=== PATIENT | female | born 1935 | race Caucasian/White ===

== ENCOUNTER 2019-11-13 09:45 | Inpatient (IN) ==
[2019-11-13] MEDS ORDERED: *HR* FentaNYL (PF) 100 MCG/2 ML VIAL ONE (11:01)
[2019-11-13] MEDS ORDERED: *HR* Midazolam HCl 2 MG/2 ML VIAL ONE (11:02)
[2019-11-13] MEDS ORDERED: Acetaminophen IV 1,000 MG/100 ML INFUS..BTL IVPB ONE (11:09)
[2019-11-13] MEDS ORDERED: Ondansetron 4 MG/2 ML VIAL IVP ONE ×2 (11:10→14:39)
[2019-11-13] MEDS ORDERED: *HR* HYDROmorphone PF 0.5 MG/0.5 ML SYRINGE IVP PRN ×2 (11:10→14:39)
[2019-11-13] MEDS ORDERED: *HR* OxyCODONE Immed Rel 5 MG TABLET PO PRN (11:10)
[2019-11-13] MEDS ORDERED: *HR* Promethazine 25 MG/ML VIAL IVP PRN ×2 (11:10→14:39)
[2019-11-13] MEDS ORDERED: Scopolamine Patch 1.5 MG PATCH.TD72 TD ONE (11:10)
[2019-11-13] MEDS: Ringers Solution, Lactated 1,000 ML IVC SCH (11:17)
[2019-11-13] MEDS ORDERED: 0.9 % Sodium Chloride 1,000 ML ONE (12:59)
[2019-11-13] MEDS ORDERED: Ketorolac 30 MG/ML VIAL IVP ONE (14:39)
[2019-11-13] MEDS: Budesonide/Formoterol 160/4.5 1 PUFF INH IH SCH (22:55)
[2019-11-14 06:24] LABS: INR 1.1; Prothrombin Time 12.7 Seconds (9.4-12.1)
[2019-11-14 06:37] LABS: Basophils % 0.1 %; Hematocrit 42.4 % (35.3-44.9); Platelet Count 105 K/mcL (140-400)
[2019-11-14 06:38] LABS: Alanine Aminotransferase 56 Units/L (7-52); Albumin 3.4 g/dL (3.5-5.7); Albumin/Globulin Ratio 1.3 (1.1-2.2); Alkaline Phosphatase 65 Units/L (34-104); Aspartate Amino Transferase 170 Units/L (13-39); BUN/Creatinine Ratio 19 (6-26); Bilirubin,Total 1.5 mg/dL (0.3-1.0); Blood Urea Nitrogen 17 mg/dL (8-23); Calcium 8.7 mg/dL (8.6-10.3); Carbon Dioxide 30 mEq/L (23-29); Chloride 105 mEq/L (98-107); Globulin 2.7 g/dL (2.4-3.5); Glucose 102 mg/dL (70-105); Magnesium 1.9 mg/dL (1.6-2.6); Osmolality,Calculated 292 (280-300); Phosphorous 4.1 mg/dL (2.7-4.5); Potassium 3.5 mEq/L (3.5-5.1); Sodium 140 mEq/L (136-145); Total Protein 6.1 g/dL (6.4-8.9); eGFR For African Americans > 60 (> 60); eGFR For Non-African Americans > 60 (> 60)
[2019-11-14 06:39] LABS: Hemoglobin 13.5 g/dL (11.5-15.4); Immature Granulocytes % 0.7 % (0-4); Immature Platelets 4.5 % (1.1-6.1); Lymphocytes # 0.6 K/mcL (0.6-4.6); Lymphocytes % 8.6 %; Mean Corpuscular HGB Conc 31.8 g/dL (31.6-35.5); Mean Corpuscular Hemoglobin 28.2 pg (28.0-33.3); Mean Corpuscular Volume 88.7 fL (83.0-100.0); Monocytes # 0.4 K/mcL (0.0-1.3); Neutrophils # 5.8 K/mcL (1.6-8.9); Red Blood Count 4.78 M/mcL (3.82-4.97); Red Cell Distribution Width 15.6 % (11.5-14.5); Segmented Neutrophils % 84.6 %; White Blood Count 6.9 K/mcL (4.3-11.1)
[2019-11-14] MEDS: Budesonide/Formoterol 160/4.5 1 PUFF INH IH SCH ×2 (07:59→20:10)
[2019-11-14] MEDS ORDERED: Ondansetron 4 MG/2 ML VIAL IVP PRN (09:01)
[2019-11-14] MEDS: carvediloL 6.25 MG TABLET PO SCH ×2 (09:06→18:20)
[2019-11-14] MEDS: Furosemide 40 MG TABLET PO SCH (09:06)
[2019-11-14] MEDS: Ringers Solution, Lactated 1,000 ML IVC SCH (10:17)
[2019-11-14] MEDS ORDERED: Furosemide 40 MG/4 ML VIAL IVP ONE (11:48)
[2019-11-14] MEDS ORDERED: levoFLOXacin 750 MG/150 ML 750 MG/150 ML BAG IVPB SCH (12:00)
[2019-11-15 06:06] LABS: Albumin 3.3 g/dL (3.5-5.7); Albumin/Globulin Ratio 1.3 (1.1-2.2); Bilirubin,Direct 0.5 mg/dL (0.0-0.2); Bilirubin,Indirect 1.2 mg/dL (0.0-1.0); Bilirubin,Total 1.7 mg/dL (0.3-1.0); Globulin 2.5 g/dL (2.4-3.5); Total Protein 5.8 g/dL (6.4-8.9)
[2019-11-15] MEDS: Furosemide 40 MG TABLET PO SCH (08:18)
[2019-11-15] MEDS: carvediloL 6.25 MG TABLET PO SCH ×2 (08:18→17:39)
[2019-11-15] MEDS ORDERED: Ipratropium/Albuterol Neb 3 ML IH PRN (09:30)
[2019-11-15] MEDS ORDERED: methylPREDNISolone 125 MG/2 ML VIAL IVP ONE (09:30)
[2019-11-15] MEDS ORDERED: Furosemide 20 MG/2 ML VIAL IVP ONE (09:33)
[2019-11-15 10:10] LABS: Basophils % 0.3 %; Eosinophils % 0.4 %; Red Cell Distribution Width 15.7 % (11.5-14.5)
[2019-11-15 10:12] LABS: Hematocrit 42.3 % (35.3-44.9); Hemoglobin 13.4 g/dL (11.5-15.4); Immature Granulocytes % 0.4 % (0-4); Immature Platelets 3.6 % (1.1-6.1); Lymphocytes # 0.7 K/mcL (0.6-4.6); Lymphocytes % 8.8 %; Mean Corpuscular HGB Conc 31.7 g/dL (31.6-35.5); Mean Corpuscular Hemoglobin 28.3 pg (28.0-33.3); Mean Corpuscular Volume 89.2 fL (83.0-100.0); Mean Platelet Volume 9.5 fL (9.4-12.4); Monocytes # 0.7 K/mcL (0.0-1.3); Monocytes % 9.5 %; Red Blood Count 4.74 M/mcL (3.82-4.97); Segmented Neutrophils % 80.6 %; White Blood Count 7.4 K/mcL (4.3-11.1)
[2019-11-15 10:19] LABS: Platelet Count 76 K/mcL (140-400)
[2019-11-15 10:27] LABS: BUN/Creatinine Ratio 25 (6-26); Blood Urea Nitrogen 21 mg/dL (8-23); Calcium 8.7 mg/dL (8.6-10.3); Carbon Dioxide 32 mEq/L (23-29); Chloride 102 mEq/L (98-107); Glucose 113 mg/dL (70-105); Osmolality,Calculated 292 (280-300); Sodium 139 mEq/L (136-145); eGFR For African Americans > 60 (> 60); eGFR For Non-African Americans > 60 (> 60)
[2019-11-15] MEDS: *HR* OxyCODONE Immed Rel 5 MG TABLET PO PRN (10:40)
[2019-11-15] MEDS ORDERED: Potassium Chloride 40 MEQ, Lidocaine 1% 2 ML in 0.9 % Sodium Chloride 500 ML IVPB ONE (10:59)
[2019-11-15] MEDS ORDERED: Isovue-370 500 ML BOTTLE IVP ONE (11:06)
[2019-11-15] MEDS: Budesonide/Formoterol 160/4.5 1 PUFF INH IH SCH ×2 (11:24→20:43)
[2019-11-15] MEDS: Ipratropium/Albuterol Neb 3 ML IH SCH ×3 (11:24→20:43)
[2019-11-15] MEDS ORDERED: Nicotine 14 MG PATCH.TD24 TD SCH (13:00)
[2019-11-15] MEDS: Ringers Solution, Lactated 1,000 ML IVC SCH (14:29)
[2019-11-15 16:52] LABS: Troponin I 0.04 ng/mL (< 0.04)
[2019-11-15] MEDS: Piperacillin/Tazobactam 3.375 GM in 0.9 % Sodium Chloride Mini Bag 100 ML IVPB SCH ×2 (17:37→23:41)
[2019-11-15] MEDS: *HR* Heparin 5,000 UNIT/ML VIAL SQ SCH (20:14)
[2019-11-15 21:00] LABS: Potassium 4.2 mEq/L (3.5-5.1)
[2019-11-15] MEDS: Nicotine 14 MG PATCH.TD24 TD SCH (21:46)
[2019-11-15] MEDS: MethylPREDNISolone 40 MG/ML VIAL IVP SCH (23:41)
[2019-11-16] MEDS: Ipratropium/Albuterol Neb 3 ML IH SCH ×6 (00:43→20:04)
[2019-11-16 03:11] LABS: Hemoglobin 13.1 g/dL (11.5-15.4); Red Cell Distribution Width 15.6 % (11.5-14.5); Segmented Neutrophils % 83.5 %
[2019-11-16 03:13] LABS: Basophils % 0.2 %; Hematocrit 42.1 % (35.3-44.9); Immature Granulocytes % 1.1 % (0-4); Immature Platelets 5.3 % (1.1-6.1); Lymphocytes # 0.5 K/mcL (0.6-4.6); Lymphocytes % 8.2 %; Mean Corpuscular HGB Conc 31.1 g/dL (31.6-35.5); Mean Corpuscular Hemoglobin 28.1 pg (28.0-33.3); Mean Corpuscular Volume 90.1 fL (83.0-100.0); Monocytes # 0.4 K/mcL (0.0-1.3); Neutrophils # 5.1 K/mcL (1.6-8.9); Red Blood Count 4.67 M/mcL (3.82-4.97); White Blood Count 6.1 K/mcL (4.3-11.1)
[2019-11-16 03:14] LABS: Platelet Count 76 K/mcL (140-400)
[2019-11-16 03:24] LABS: BUN/Creatinine Ratio 29 (6-26); Blood Urea Nitrogen 22 mg/dL (8-23); Calcium 8.8 mg/dL (8.6-10.3); Carbon Dioxide 30 mEq/L (23-29); Chloride 105 mEq/L (98-107); Glucose 139 mg/dL (70-105); Osmolality,Calculated 298 (280-300); Potassium 3.6 mEq/L (3.5-5.1); Sodium 141 mEq/L (136-145); eGFR For African Americans > 60 (> 60); eGFR For Non-African Americans > 60 (> 60)
[2019-11-16] MEDS ORDERED: *HR* Labetalol 20 MG/4 ML SYRINGE IVP ONE (03:36)
[2019-11-16] MEDS: *HR* Heparin 5,000 UNIT/ML VIAL SQ SCH ×3 (05:16→22:23)
[2019-11-16] MEDS: MethylPREDNISolone 40 MG/ML VIAL IVP SCH ×2 (07:53→14:48)
[2019-11-16] MEDS: carvediloL 6.25 MG TABLET PO SCH ×2 (07:53→18:14)
[2019-11-16] MEDS: Piperacillin/Tazobactam 3.375 GM in 0.9 % Sodium Chloride Mini Bag 100 ML IVPB SCH ×2 (07:53→14:48)
[2019-11-16] MEDS: Furosemide 40 MG TABLET PO SCH (07:53)
[2019-11-16] MEDS: Nicotine 14 MG PATCH.TD24 TD SCH (07:54)
[2019-11-16] MEDS: Budesonide/Formoterol 160/4.5 1 PUFF INH IH SCH ×2 (08:02→20:04)
[2019-11-16] MEDS ORDERED: Furosemide 20 MG/2 ML VIAL IVP SCH (09:00)
[2019-11-16 09:42] LABS: Albumin 3.4 g/dL (3.5-5.7); Albumin/Globulin Ratio 1.3 (1.1-2.2); Bilirubin,Direct 0.4 mg/dL (0.0-0.2); Bilirubin,Indirect 0.8 mg/dL (0.0-1.0); Bilirubin,Total 1.2 mg/dL (0.3-1.0); Globulin 2.7 g/dL (2.4-3.5); Total Protein 6.1 g/dL (6.4-8.9)
[2019-11-16] MEDS: Vancomycin 1,250 MG/262.5 ML IV.SOLN IVPB SCH (11:02)
[2019-11-16] MEDS: *HR* OxyCODONE Immed Rel 5 MG TABLET PO PRN (22:22)
[2019-11-16] MEDS: Furosemide 20 MG/2 ML VIAL IVP SCH (22:26)
[2019-11-17] MEDS: Ipratropium/Albuterol Neb 3 ML IH SCH ×7 (00:04→23:26)
[2019-11-17] MEDS: Piperacillin/Tazobactam 3.375 GM in 0.9 % Sodium Chloride Mini Bag 100 ML IVPB SCH ×3 (00:31→16:06)
[2019-11-17] MEDS: MethylPREDNISolone 40 MG/ML VIAL IVP SCH ×2 (00:31→08:38)
[2019-11-17 02:01] LABS: Hemoglobin 12.7 g/dL (11.5-15.4); Red Cell Distribution Width 15.8 % (11.5-14.5)
[2019-11-17 02:03] LABS: Hematocrit 40.7 % (35.3-44.9); Immature Granulocytes % 0.9 % (0-4); Immature Platelets 6.7 % (1.1-6.1); Lymphocytes # 0.4 K/mcL (0.6-4.6); Lymphocytes % 5.9 %; Mean Corpuscular HGB Conc 31.2 g/dL (31.6-35.5); Mean Corpuscular Hemoglobin 28.2 pg (28.0-33.3); Mean Corpuscular Volume 90.2 fL (83.0-100.0); Mean Platelet Volume 11.6 fL (9.4-12.4); Monocytes # 0.5 K/mcL (0.0-1.3); Monocytes % 6.6 %; Neutrophils # 6.4 K/mcL (1.6-8.9); Red Blood Count 4.51 M/mcL (3.82-4.97); Segmented Neutrophils % 86.6 %; White Blood Count 7.4 K/mcL (4.3-11.1)
[2019-11-17 02:06] LABS: Platelet Count 89 K/mcL (140-400)
[2019-11-17 02:15] LABS: BUN/Creatinine Ratio 33 (6-26); Blood Urea Nitrogen 29 mg/dL (8-23); Calcium 8.7 mg/dL (8.6-10.3); Carbon Dioxide 31 mEq/L (23-29); Chloride 105 mEq/L (98-107); Glucose 187 mg/dL (70-105); Osmolality,Calculated 303 (280-300); Potassium 3.4 mEq/L (3.5-5.1); Sodium 141 mEq/L (136-145); eGFR For African Americans > 60 (> 60); eGFR For Non-African Americans > 60 (> 60)
[2019-11-17] MEDS: *HR* Heparin 5,000 UNIT/ML VIAL SQ SCH ×3 (05:15→20:35)
[2019-11-17] MEDS: Budesonide/Formoterol 160/4.5 1 PUFF INH IH SCH ×2 (07:34→19:51)
[2019-11-17] MEDS: carvediloL 6.25 MG TABLET PO SCH ×2 (08:37→16:07)
[2019-11-17] MEDS: Furosemide 20 MG/2 ML VIAL IVP SCH ×2 (08:38→20:34)
[2019-11-17] MEDS: Nicotine 14 MG PATCH.TD24 TD SCH (09:14)
[2019-11-17] MEDS: Vancomycin 1,250 MG/262.5 ML IV.SOLN IVPB SCH (12:18)
[2019-11-17] MEDS: *HR* OxyCODONE Immed Rel 5 MG TABLET PO PRN (21:45)
[2019-11-18] MEDS: Piperacillin/Tazobactam 3.375 GM in 0.9 % Sodium Chloride Mini Bag 100 ML IVPB SCH ×3 (00:16→16:34)
[2019-11-18] MEDS: Ipratropium/Albuterol Neb 3 ML IH SCH ×5 (03:55→20:10)
[2019-11-18] MEDS: *HR* Heparin 5,000 UNIT/ML VIAL SQ SCH ×3 (05:41→20:16)
[2019-11-18] MEDS: Budesonide/Formoterol 160/4.5 1 PUFF INH IH SCH ×2 (07:49→20:10)
[2019-11-18 08:31] LABS: Hemoglobin 13.6 g/dL (11.5-15.4); Immature Granulocytes % 0.6 % (0-4); Mean Corpuscular HGB Conc 31.9 g/dL (31.6-35.5); Mean Platelet Volume 10.5 fL (9.4-12.4)
[2019-11-18 08:33] LABS: Hematocrit 42.6 % (35.3-44.9); Immature Platelets 4.5 % (1.1-6.1); Lymphocytes # 0.5 K/mcL (0.6-4.6); Lymphocytes % 10.4 %; Mean Corpuscular Hemoglobin 28.3 pg (28.0-33.3); Mean Corpuscular Volume 88.6 fL (83.0-100.0); Monocytes # 0.5 K/mcL (0.0-1.3); Monocytes % 10.4 %; Neutrophils # 4.1 K/mcL (1.6-8.9); Red Blood Count 4.81 M/mcL (3.82-4.97); Red Cell Distribution Width 15.9 % (11.5-14.5); Segmented Neutrophils % 78.6 %; White Blood Count 5.2 K/mcL (4.3-11.1)
[2019-11-18 08:34] LABS: Platelet Count 81 K/mcL (140-400)
[2019-11-18 08:47] LABS: BUN/Creatinine Ratio 38 (6-26); Blood Urea Nitrogen 26 mg/dL (8-23); Calcium 8.7 mg/dL (8.6-10.3); Carbon Dioxide 32 mEq/L (23-29); Chloride 106 mEq/L (98-107); Glucose 79 mg/dL (70-105); Osmolality,Calculated 300 (280-300); Sodium 143 mEq/L (136-145); eGFR For African Americans > 60 (> 60); eGFR For Non-African Americans > 60 (> 60)
[2019-11-18] MEDS ORDERED: Potassium Chloride 20 MEQ, Lidocaine 1% 2 ML in 0.9 % Sodium Chloride 250 ML IVPB ONE (09:09)
[2019-11-18] MEDS ORDERED: Aminoglycoside Consult 1 EACH MC ONE (09:23)
[2019-11-18 09:49] LABS: Lactate Dehydrogenase 196 Units/L (140-271); Vancomycin,Trough 9 mcg/mL (5-10)
[2019-11-18] MEDS: Nicotine 14 MG PATCH.TD24 TD SCH (09:50)
[2019-11-18] MEDS: carvediloL 6.25 MG TABLET PO SCH ×2 (09:50→16:35)
[2019-11-18] MEDS: predniSONE 20 MG TABLET PO SCH (09:50)
[2019-11-18] MEDS: Furosemide 20 MG/2 ML VIAL IVP SCH ×2 (09:50→20:16)
[2019-11-18 10:07] LABS: ABG Base Excess 7 mEq/L (-2 to 3); ABG HCO3 31 mEq/L (21-27); ABG Oxygen Saturation 97 % (95-98); ABG PCO2 41 mmHg (35-45); ABG PH 7.49 pH Units (7.32-7.45); ABG PO2 79 mmHg (85-104); ABG TCO2 32 mEq/L (20-26)
[2019-11-18] MEDS ORDERED: Vancomycin 1,500 MG/265 ML IV.SOLN IVPB SCH (11:00)
[2019-11-18] MEDS ORDERED: lisinopriL 10 MG TABLET PO SCH (13:15)
[2019-11-18 14:59] LABS: RBC,Pleural Fluid 2000 RBC/mcL
[2019-11-18 15:56] LABS: Amylase,Pleural Fluid 11 Units/L (No Ref Range); Glucose,Pleural Fluid 70 mg/dL (No Ref Range); LDH,Pleural Fluid 300 Units/L (No Ref Range); Total Protein,Pleural Fluid < 3.0 g/dL
[2019-11-18 16:26] LABS: Basophils,Pleural Fluid 0 %; Eosinophils,Pleural Fluid 0 %
[2019-11-18 16:51] LABS: Appearance of Pleural Fl Hazy (Clear)
[2019-11-18] MEDS: *HR* OxyCODONE Immed Rel 5 MG TABLET PO PRN (22:21)
[2019-11-19] MEDS: Ipratropium/Albuterol Neb 3 ML IH SCH ×6 (00:10→20:06)
[2019-11-19 01:32] LABS: Hemoglobin 13.2 g/dL (11.5-15.4); Red Cell Distribution Width 15.8 % (11.5-14.5)
[2019-11-19 01:34] LABS: Basophils % 0.2 %; Hematocrit 40.6 % (35.3-44.9); Immature Granulocytes % 0.8 % (0-4); Immature Platelets 3.7 % (1.1-6.1); Lymphocytes # 0.5 K/mcL (0.6-4.6); Lymphocytes % 10.6 %; Mean Corpuscular HGB Conc 32.5 g/dL (31.6-35.5); Mean Corpuscular Hemoglobin 28.6 pg (28.0-33.3); Mean Corpuscular Volume 88.1 fL (83.0-100.0); Mean Platelet Volume 10.9 fL (9.4-12.4); Monocytes # 0.4 K/mcL (0.0-1.3); Monocytes % 9.1 %; Neutrophils # 3.8 K/mcL (1.6-8.9); Red Blood Count 4.61 M/mcL (3.82-4.97); Segmented Neutrophils % 79.3 %; White Blood Count 4.8 K/mcL (4.3-11.1)
[2019-11-19 01:36] LABS: Platelet Count 95 K/mcL (140-400)
[2019-11-19 01:45] LABS: Magnesium 1.7 mg/dL (1.6-2.6)
[2019-11-19 01:46] LABS: Alanine Aminotransferase 86 Units/L (7-52); Albumin/Globulin Ratio 1.2 (1.1-2.2); Alkaline Phosphatase 99 Units/L (34-104); Aspartate Amino Transferase 85 Units/L (13-39); BUN/Creatinine Ratio 36 (6-26); Bilirubin,Total 1.3 mg/dL (0.3-1.0); Blood Urea Nitrogen 26 mg/dL (8-23); Calcium 8.7 mg/dL (8.6-10.3); Carbon Dioxide 31 mEq/L (23-29); Chloride 104 mEq/L (98-107); Globulin 2.6 g/dL (2.4-3.5); Glucose 73 mg/dL (70-105); Osmolality,Calculated 295 (280-300); Sodium 141 mEq/L (136-145); Total Protein 5.6 g/dL (6.4-8.9); eGFR For African Americans > 60 (> 60); eGFR For Non-African Americans > 60 (> 60)
[2019-11-19] MEDS: *HR* Heparin 5,000 UNIT/ML VIAL SQ SCH ×3 (06:06→20:29)
[2019-11-19] MEDS: *HR* OxyCODONE Immed Rel 5 MG TABLET PO PRN ×3 (06:10→23:36)
[2019-11-19] MEDS: Budesonide/Formoterol 160/4.5 1 PUFF INH IH SCH ×2 (08:02→20:06)
[2019-11-19] MEDS: carvediloL 6.25 MG TABLET PO SCH ×2 (09:18→16:04)
[2019-11-19] MEDS: Nicotine 14 MG PATCH.TD24 TD SCH (09:18)
[2019-11-19] MEDS: predniSONE 20 MG TABLET PO SCH (09:18)
[2019-11-19] MEDS: Furosemide 20 MG/2 ML VIAL IVP SCH ×2 (09:19→16:04)
[2019-11-19] MEDS ORDERED: Potassium Phosphate 44 MEQ in 0.9 % Sodium Chloride 250 ML IVPB ONE (14:58)
[2019-11-20] MEDS: Ipratropium/Albuterol Neb 3 ML IH SCH ×4 (00:03→11:23)
[2019-11-20] MEDS: *HR* Heparin 5,000 UNIT/ML VIAL SQ SCH (05:56)
[2019-11-20 06:37] VITALS: BP 143/70
[2019-11-20] MEDS: Budesonide/Formoterol 160/4.5 1 PUFF INH IH SCH (07:37)
[2019-11-20] MEDS: predniSONE 20 MG TABLET PO SCH (08:06)
[2019-11-20] MEDS: carvediloL 6.25 MG TABLET PO SCH (08:06)
[2019-11-20] MEDS: Furosemide 20 MG/2 ML VIAL IVP SCH (08:07)
[2019-11-20] MEDS: Nicotine 14 MG PATCH.TD24 TD SCH (08:07)
[2019-11-20] MEDS: *HR* OxyCODONE Immed Rel 5 MG TABLET PO PRN (08:21)
== END 2019-11-20 14:40 | disposition home health service (06) | DRG 405 ==
LOC: RAD 09:45 → 3BNU 09:45 → EDSTATUS 11:15 → SUATTDRO 18:37 → 2ANU 11-18 14:58
PROVIDERS: ADMIT Internal Medicine; ATTEND Internal Medicine
PROC: [UNRECOGNIZED PROCEDURE] (2019-11-13 11:15)

== ENCOUNTER 2021-04-26 17:38 | Inpatient (IN) ==
[2021-04-26] MEDS ORDERED: Ipratropium/Albuterol Neb 3 ML IH ONE ×2 (17:55→20:01)
[2021-04-26] MEDS ORDERED: methylPREDNISolone 125 MG/2 ML VIAL IVP ONE (18:15)
[2021-04-26 18:31] LABS: Hemoglobin 13.4 g/dL (11.5-15.4); Mean Corpuscular Volume 93.3 fL (83.0-100.0); Monocytes % 9.3 %
[2021-04-26 18:31] LABS: VBG HCO3 28 mEq/L (21-27); VBG PCO2 46 mmHg (41-51); VBG PH 7.39 pH Units (7.32-7.42); VBG PO2 192 mmHg (25-50)
[2021-04-26 18:33] LABS: Basophils % 0.3 %; Eosinophils # 0.1 K/mcL (0.0-0.6); Eosinophils % 0.7 %; Hematocrit 41.5 % (35.3-44.9); Immature Granulocytes % 0.7 % (0-4); Immature Platelets 3.3 % (1.1-6.1); Lymphocytes # 0.9 K/mcL (0.6-4.6); Lymphocytes % 9.3 %; Mean Corpuscular HGB Conc 32.3 g/dL (31.6-35.5); Mean Corpuscular Hemoglobin 30.1 pg (28.0-33.3); Mean Platelet Volume 9.9 fL (9.4-12.4); Monocytes # 0.9 K/mcL (0.0-1.3); Neutrophils # 7.7 K/mcL (1.6-8.9); Platelet Count 126 K/mcL (140-400); Red Blood Count 4.45 M/mcL (3.82-4.97); Red Cell Distribution Width 14.3 % (11.5-14.5); Segmented Neutrophils % 79.7 %; White Blood Count 9.7 K/mcL (4.3-11.1)
[2021-04-26 18:40] LABS: INR 1.2; Prothrombin Time 13.1 Seconds (9.4-12.1)
[2021-04-26 18:43] LABS: Activated Partial Thrombo Time 32.3 Seconds (26.0-36.0)
[2021-04-26 18:55] LABS: Influenza A PCR Negative (Negative); Influenza B PCR Negative (Negative); Resp. Syncytial Virus PCR Negative (Negative)
[2021-04-26 18:56] LABS: SARS-CoV-2 by PCR (In House) Negative (Negative)
[2021-04-26 19:05] LABS: Reactive Lymphocytes Present (Not Present)
[2021-04-26 19:15] LABS: Troponin I 0.04 ng/mL (< 0.04)
[2021-04-26 19:18] LABS: Alanine Aminotransferase 14 Units/L (7-52); Alkaline Phosphatase 65 Units/L (34-104); Aspartate Amino Transferase 26 Units/L (13-39); BUN/Creatinine Ratio 21 (6-26); Bilirubin,Total 1.5 mg/dL (0.3-1.0); Blood Urea Nitrogen 22 mg/dL (8-23); Calcium 8.9 mg/dL (8.6-10.3); Carbon Dioxide 25 mEq/L (23-29); Chloride 103 mEq/L (98-107); Globulin 3.1 g/dL (2.4-3.5); Glucose 103 mg/dL (70-105); Lipase 15 Units/L (11-82); Osmolality,Calculated 288 (280-300); Potassium 4.3 mEq/L (3.5-5.1); Sodium 137 mEq/L (136-145); Total Protein 6.1 g/dL (6.4-8.9); eGFR For African Americans > 60 (> 60); eGFR For Non-African Americans 50 (> 60)
[2021-04-26] MEDS ORDERED: Isovue-370 500 ML BOTTLE IVP ONE (20:10)
[2021-04-26] MEDS ORDERED: cefTRIAXone 1,000 MG in 0.9 % Sodium Chloride Mini Bag 100 ML IVPB ONE (22:02)
[2021-04-26] MEDS ORDERED: *HR* Heparin 5,000 UNIT/ML VIAL IVP ONE (22:26)
[2021-04-26] MEDS ORDERED: Azithromycin 500 MG in 0.9 % Sodium Chloride 250 ML IVPB ONE (22:26)
[2021-04-26] MEDS ORDERED: *HR* Heparin 5,000 UNIT/ML VIAL IVP PRN ×2 (22:26)
[2021-04-26 22:34] LABS: Bilirubin,Urine Negative (Negative); Blood,Urine Negative (Negative); Clarity,Urine Clear (Clear); Color,Urine Light-Orange (Yellow); Glucose,Urine (UA) Normal (Normal); Ketones,Urine Negative (Negative); Leukocyte Esterase,Urine Negative (Negative); Nitrite,Urine Negative (Negative); Protein,Urine Trace mg/dL (Neg-Trace); Specific Gravity,Urine > 1.030 (1.010-1.025); Urobilinogen,Urine Normal (Normal)
[2021-04-26] MEDS: Heparin 25,000UNIT/250ML 1/2NS 25,000 UNIT/250 ML IV.SOLN IVC SCH (22:56)
[2021-04-26] MEDS ORDERED: Ondansetron 4 MG/2 ML VIAL IVP PRN (23:22)
[2021-04-26] MEDS ORDERED: Acetaminophen 325 MG TABLET PO PRN (23:22)
[2021-04-26] MEDS ORDERED: Naloxone 0.4 MG/ML INJ IVP PRN (23:22)
[2021-04-26] MEDS ORDERED: Perflutren Lipid Microsphere 1.3 ML in 0.9 % Sodium Chloride 8.7 ML IVP PRN (23:30)
[2021-04-27] MEDS: Ipratropium/Albuterol Neb 3 ML IH PRN ×2 (00:32→12:28)
[2021-04-27 01:53] LABS: Adenovirus Not Detected (Not Detect); Bordetella Pertussis Not Detected (Not Detect); Chlamydophila pneumoniae Not Detected (Not Detect); Coronavirus 229E Not Detected (Not Detect); Coronavirus HKU1 Not Detected (Not Detect); Coronavirus NL63 Not Detected (Not Detect); Coronavirus OC43 Not Detected (Not Detect); Human Metapneumovirus Not Detected (Not Detect); Human Rhinovirus/Enterovirus Not Detected (Not Detect); Influenza A Subtype 2009 H1 Not Detected (Not Detect); Influenza B Not Detected (Not Detect); Mycoplasma pneumoniae Not Detected (Not Detect); Parainfluenza Virus 1 Not Detected (Not Detect); Parainfluenza Virus 2 Not Detected (Not Detect); Parainfluenza Virus 3 Not Detected (Not Detect); Parainfluenza Virus 4 Not Detected (Not Detect); Respiratory Syncytial Virus Not Detected (Not Detect); SARS-CoV-2 Not Detected (Not Detect)
[2021-04-27 05:25] LABS: BUN/Creatinine Ratio 24 (6-26); Blood Urea Nitrogen 25 mg/dL (8-23); Calcium 8.6 mg/dL (8.6-10.3); Carbon Dioxide 25 mEq/L (23-29); Chloride 105 mEq/L (98-107); Glucose 226 mg/dL (70-105); Osmolality,Calculated 299 (280-300); Potassium 3.9 mEq/L (3.5-5.1); Sodium 139 mEq/L (136-145); eGFR For African Americans > 60 (> 60); eGFR For Non-African Americans 50 (> 60)
[2021-04-27 05:38] LABS: Thyroid Stimulating Hormone 0.579 mcIU/mL (0.340-5.600)
[2021-04-27] MEDS: Nicotine 14 MG PATCH.TD24 TD SCH ×2 (05:55→07:49)
[2021-04-27] MEDS: Azithromycin 500 MG in 0.9 % Sodium Chloride 250 ML IVPB SCH (07:43)
[2021-04-27] MEDS: cefTRIAXone 1,000 MG in 0.9 % Sodium Chloride Mini Bag 100 ML IVPB SCH (07:43)
[2021-04-27 12:28] LABS: ABG Base Excess 0 mEq/L (-2 to 3); ABG HCO3 27 mEq/L (21-27); ABG Oxygen Saturation 92 % (95-98); ABG PCO2 54 mmHg (35-45); ABG PH 7.32 pH Units (7.32-7.45); ABG PO2 69 mmHg (85-104); ABG TCO2 29 mEq/L (20-26)
[2021-04-27] MEDS: 0.9 % Sodium Chloride 1,000 ML IVC SCH (14:35)
[2021-04-27] MEDS: Heparin 25,000UNIT/250ML 1/2NS 25,000 UNIT/250 ML IV.SOLN IVC SCH (20:24)
[2021-04-28 01:39] LABS: Basophils % 0.3 %; Eosinophils # 0.1 K/mcL (0.0-0.6); Eosinophils % 0.7 %; Hematocrit 41.2 % (35.3-44.9); Hemoglobin 12.7 g/dL (11.5-15.4); Lymphocytes # 0.7 K/mcL (0.6-4.6); Lymphocytes % 9.7 %; Mean Corpuscular HGB Conc 30.8 g/dL (31.6-35.5); Mean Corpuscular Hemoglobin 29.1 pg (28.0-33.3); Mean Corpuscular Volume 94.5 fL (83.0-100.0); Mean Platelet Volume 10.1 fL (9.4-12.4); Monocytes # 0.7 K/mcL (0.0-1.3); Monocytes % 10.4 %; Neutrophils # 5.5 K/mcL (1.6-8.9); Platelet Count 117 K/mcL (140-400); Red Blood Count 4.36 M/mcL (3.82-4.97); Red Cell Distribution Width 14.2 % (11.5-14.5); Segmented Neutrophils % 77.9 %; White Blood Count 7.1 K/mcL (4.3-11.1)
[2021-04-28 01:45] LABS: BUN/Creatinine Ratio 30 (6-26); Blood Urea Nitrogen 31 mg/dL (8-23); Calcium 8.6 mg/dL (8.6-10.3); Carbon Dioxide 26 mEq/L (23-29); Chloride 109 mEq/L (98-107); Glucose 107 mg/dL (70-105); Osmolality,Calculated 299 (280-300); Potassium 3.8 mEq/L (3.5-5.1); Sodium 141 mEq/L (136-145); eGFR For African Americans > 60 (> 60); eGFR For Non-African Americans 50 (> 60)
[2021-04-28] MEDS: Heparin 25,000UNIT/250ML 1/2NS 25,000 UNIT/250 ML IV.SOLN IVC SCH (06:10)
[2021-04-28] MEDS: Nicotine 14 MG PATCH.TD24 TD SCH (08:44)
[2021-04-28] MEDS: cefTRIAXone 1,000 MG in 0.9 % Sodium Chloride Mini Bag 100 ML IVPB SCH (08:45)
[2021-04-28] MEDS: Azithromycin 500 MG in 0.9 % Sodium Chloride 250 ML IVPB SCH (08:46)
[2021-04-28] MEDS: 0.9 % Sodium Chloride 1,000 ML IVC SCH (08:47)
[2021-04-28] MEDS: Furosemide 20 MG TABLET PO SCH (09:14)
[2021-04-28] MEDS: carvediloL 6.25 MG TABLET PO SCH ×2 (09:15→17:01)
[2021-04-28] MEDS: Apixaban 5 MG TABLET PO SCH ×2 (11:01→20:27)
[2021-04-28] MEDS: Ipratropium/Albuterol Neb 3 ML IH SCH ×5 (11:15→23:55)
[2021-04-28] MEDS: Budesonide/Formoterol 160/4.5 1 PUFF INH IH SCH (11:17)
[2021-04-28] MEDS: methylPREDNISolone 125 MG/2 ML VIAL IVP SCH ×3 (12:31→23:28)
[2021-04-28] MEDS: Mirtazapine 15 MG TABLET PO SCH (20:27)
[2021-04-28] MEDS ORDERED: Benzonatate 100 MG CAPSULE PO PRN (21:33)
[2021-04-29 00:52] LABS: Basophils % 0.2 %; Hematocrit 39.3 % (35.3-44.9); Hemoglobin 11.9 g/dL (11.5-15.4); Immature Granulocytes % 1.3 % (0-4); Immature Platelets 3.7 % (1.1-6.1); Lymphocytes # 0.4 K/mcL (0.6-4.6); Lymphocytes % 9.3 %; Mean Corpuscular HGB Conc 30.3 g/dL (31.6-35.5); Mean Corpuscular Volume 95.9 fL (83.0-100.0); Mean Platelet Volume 10.6 fL (9.4-12.4); Monocytes # 0.2 K/mcL (0.0-1.3); Monocytes % 5.2 %; Neutrophils # 3.9 K/mcL (1.6-8.9); Platelet Count 121 K/mcL (140-400); Red Cell Distribution Width 14.4 % (11.5-14.5); White Blood Count 4.6 K/mcL (4.3-11.1)
[2021-04-29 01:05] LABS: BUN/Creatinine Ratio 30 (6-26); Blood Urea Nitrogen 31 mg/dL (8-23); Calcium 8.5 mg/dL (8.6-10.3); Carbon Dioxide 23 mEq/L (23-29); Chloride 110 mEq/L (98-107); Glucose 287 mg/dL (70-105); Osmolality,Calculated 309 (280-300); Sodium 141 mEq/L (136-145); eGFR For African Americans > 60 (> 60); eGFR For Non-African Americans 51 (> 60)
[2021-04-29] MEDS: Ipratropium/Albuterol Neb 3 ML IH SCH ×6 (04:35→23:41)
[2021-04-29] MEDS: methylPREDNISolone 125 MG/2 ML VIAL IVP SCH ×3 (06:20→19:44)
[2021-04-29] MEDS: 0.9 % Sodium Chloride 1,000 ML IVC SCH (06:21)
[2021-04-29] MEDS: Furosemide 20 MG TABLET PO SCH (08:19)
[2021-04-29] MEDS: Azithromycin 500 MG in 0.9 % Sodium Chloride 250 ML IVPB SCH (08:19)
[2021-04-29] MEDS: carvediloL 6.25 MG TABLET PO SCH ×2 (08:19→16:05)
[2021-04-29] MEDS: Nicotine 14 MG PATCH.TD24 TD SCH (08:19)
[2021-04-29] MEDS: Apixaban 5 MG TABLET PO SCH ×2 (08:19→19:45)
[2021-04-29] MEDS: cefTRIAXone 1,000 MG in 0.9 % Sodium Chloride Mini Bag 100 ML IVPB SCH (10:44)
[2021-04-29] MEDS: Mirtazapine 15 MG TABLET PO SCH (19:45)
[2021-04-29] MEDS: Budesonide/Formoterol 160/4.5 1 PUFF INH IH SCH (23:41)
[2021-04-30] MEDS: methylPREDNISolone 125 MG/2 ML VIAL IVP SCH ×3 (00:31→17:48)
[2021-04-30 01:38] LABS: Basophils % 0.2 %
[2021-04-30 01:40] LABS: Hemoglobin 12.3 g/dL (11.5-15.4); Immature Granulocytes % 2.7 % (0-4); Immature Platelets 3.6 % (1.1-6.1); Lymphocytes # 0.5 K/mcL (0.6-4.6); Lymphocytes % 7.2 %; Mean Corpuscular HGB Conc 31.5 g/dL (31.6-35.5); Mean Corpuscular Hemoglobin 29.4 pg (28.0-33.3); Mean Corpuscular Volume 93.1 fL (83.0-100.0); Mean Platelet Volume 10.1 fL (9.4-12.4); Monocytes # 0.3 K/mcL (0.0-1.3); Monocytes % 5.3 %; Neutrophils # 5.3 K/mcL (1.6-8.9); Platelet Count 129 K/mcL (140-400); Red Blood Count 4.19 M/mcL (3.82-4.97); Red Cell Distribution Width 14.5 % (11.5-14.5); Segmented Neutrophils % 84.6 %; White Blood Count 6.2 K/mcL (4.3-11.1)
[2021-04-30 02:03] LABS: BUN/Creatinine Ratio 33 (6-26); Blood Urea Nitrogen 32 mg/dL (8-23); Calcium 8.7 mg/dL (8.6-10.3); Carbon Dioxide 28 mEq/L (23-29); Chloride 111 mEq/L (98-107); Glucose 121 mg/dL (70-105); Osmolality,Calculated 304 (280-300); Potassium 4.7 mEq/L (3.5-5.1); Sodium 143 mEq/L (136-145); eGFR For African Americans > 60 (> 60); eGFR For Non-African Americans 55 (> 60)
[2021-04-30] MEDS: Ipratropium/Albuterol Neb 3 ML IH SCH ×5 (04:22→19:55)
[2021-04-30] MEDS: Budesonide/Formoterol 160/4.5 1 PUFF INH IH SCH ×2 (07:20→19:55)
[2021-04-30] MEDS: Nicotine 14 MG PATCH.TD24 TD SCH (09:00)
[2021-04-30] MEDS: carvediloL 6.25 MG TABLET PO SCH ×2 (09:07→17:47)
[2021-04-30] MEDS: Apixaban 5 MG TABLET PO SCH ×2 (09:07→19:29)
[2021-04-30] MEDS: Furosemide 20 MG TABLET PO SCH (09:08)
[2021-04-30] MEDS: cefTRIAXone 1,000 MG in 0.9 % Sodium Chloride Mini Bag 100 ML IVPB SCH (09:11)
[2021-04-30] MEDS: Azithromycin 500 MG in 0.9 % Sodium Chloride 250 ML IVPB SCH (11:14)
[2021-04-30] MEDS: amLODIPine 5 MG TABLET PO SCH (11:16)
[2021-04-30] MEDS: Mirtazapine 15 MG TABLET PO SCH (19:29)
[2021-05-01] MEDS: Ipratropium/Albuterol Neb 3 ML IH SCH ×7 (03:48→23:16)
[2021-05-01 05:25] LABS: Monocytes % 6.6 %; Red Cell Distribution Width 14.5 % (11.5-14.5)
[2021-05-01 05:27] LABS: Basophils % 0.3 %; Hematocrit 38.3 % (35.3-44.9); Hemoglobin 12.3 g/dL (11.5-15.4); Immature Granulocytes % 2.1 % (0-4); Immature Platelets 3.1 % (1.1-6.1); Lymphocytes # 0.5 K/mcL (0.6-4.6); Lymphocytes % 7.4 %; Mean Corpuscular HGB Conc 32.1 g/dL (31.6-35.5); Mean Corpuscular Volume 93.4 fL (83.0-100.0); Mean Platelet Volume 10.3 fL (9.4-12.4); Monocytes # 0.4 K/mcL (0.0-1.3); Neutrophils # 5.2 K/mcL (1.6-8.9); Platelet Count 134 K/mcL (140-400); Segmented Neutrophils % 83.6 %; White Blood Count 6.2 K/mcL (4.3-11.1)
[2021-05-01] MEDS: methylPREDNISolone 125 MG/2 ML VIAL IVP SCH ×2 (05:30→16:55)
[2021-05-01 05:39] LABS: BUN/Creatinine Ratio 40 (6-26); Blood Urea Nitrogen 41 mg/dL (8-23); Carbon Dioxide 28 mEq/L (23-29); Chloride 110 mEq/L (98-107); Glucose 112 mg/dL (70-105); Osmolality,Calculated 307 (280-300); Potassium 4.2 mEq/L (3.5-5.1); Sodium 143 mEq/L (136-145); eGFR For African Americans > 60 (> 60); eGFR For Non-African Americans 52 (> 60)
[2021-05-01 06:16] LABS: Platelet Estimate Slight Decrease (Normal)
[2021-05-01] MEDS: Budesonide/Formoterol 160/4.5 1 PUFF INH IH SCH ×2 (07:25→19:54)
[2021-05-01] MEDS: cefTRIAXone 1,000 MG in 0.9 % Sodium Chloride Mini Bag 100 ML IVPB SCH (07:56)
[2021-05-01] MEDS: Nicotine 14 MG PATCH.TD24 TD SCH (07:57)
[2021-05-01] MEDS: carvediloL 6.25 MG TABLET PO SCH ×2 (07:57→16:54)
[2021-05-01] MEDS: Furosemide 20 MG TABLET PO SCH (07:58)
[2021-05-01] MEDS: Apixaban 5 MG TABLET PO SCH ×2 (07:58→19:38)
[2021-05-01] MEDS: amLODIPine 5 MG TABLET PO SCH (07:58)
[2021-05-01] MEDS: Mirtazapine 15 MG TABLET PO SCH (19:38)
[2021-05-01 22:29] VITALS: PULSE 60
[2021-05-01] MEDS ORDERED: Saline Nasal Spray 44 ML BOTTLE NS PRN (23:23)
[2021-05-02] MEDS: Ipratropium/Albuterol Neb 3 ML IH SCH ×4 (03:39→15:00)
[2021-05-02] MEDS: methylPREDNISolone 125 MG/2 ML VIAL IVP SCH (04:57)
[2021-05-02 05:10] LABS: Hemoglobin 12.6 g/dL (11.5-15.4)
[2021-05-02 05:12] LABS: Hematocrit 40.3 % (35.3-44.9); Immature Platelets 2.9 % (1.1-6.1); Mean Corpuscular HGB Conc 31.3 g/dL (31.6-35.5); Mean Corpuscular Hemoglobin 29.2 pg (28.0-33.3); Mean Corpuscular Volume 93.3 fL (83.0-100.0); Mean Platelet Volume 9.9 fL (9.4-12.4); Platelet Count 128 K/mcL (140-400); Red Blood Count 4.32 M/mcL (3.82-4.97); Red Cell Distribution Width 14.3 % (11.5-14.5); White Blood Count 6.3 K/mcL (4.3-11.1)
[2021-05-02 05:33] LABS: Lymphocytes # 0.6 K/mcL (0.6-4.6); Monocytes # 0.1 K/mcL (0.0-1.3); Neutrophils # 5.3 K/mcL (1.6-8.9); Platelet Estimate Slight Decrease (Normal); Toxic Granulation Present (Not Present)
[2021-05-02 05:35] LABS: BUN/Creatinine Ratio 40 (6-26); Blood Urea Nitrogen 41 mg/dL (8-23); Carbon Dioxide 29 mEq/L (23-29); Chloride 108 mEq/L (98-107); Glucose 114 mg/dL (70-105); Osmolality,Calculated 305 (280-300); Potassium 4.3 mEq/L (3.5-5.1); Sodium 142 mEq/L (136-145); eGFR For African Americans > 60 (> 60); eGFR For Non-African Americans 52 (> 60)
[2021-05-02 06:54] VITALS: TEMP 97.9
[2021-05-02] MEDS: Budesonide/Formoterol 160/4.5 1 PUFF INH IH SCH (07:35)
[2021-05-02] MEDS: carvediloL 6.25 MG TABLET PO SCH (08:14)
[2021-05-02] MEDS: amLODIPine 5 MG TABLET PO SCH (08:14)
[2021-05-02] MEDS: Apixaban 5 MG TABLET PO SCH (08:14)
[2021-05-02] MEDS: Furosemide 20 MG TABLET PO SCH (08:14)
[2021-05-02] MEDS: Nicotine 14 MG PATCH.TD24 TD SCH (08:15)
[2021-05-02] MEDS: cefTRIAXone 1,000 MG in 0.9 % Sodium Chloride Mini Bag 100 ML IVPB SCH (08:15)
[2021-05-02 10:48] VITALS: BP 160/71
[2021-05-02 13:38] VITALS: O2SAT 92
== END 2021-05-02 15:45 | disposition home health service (06) | DRG 175 ==
LOC: 2NENU 17:38 → EMEROOARM 17:38 → SUATTDRO 23:22 → 2NENU 23:26
PROVIDERS: ADMIT Internal Medicine; ATTEND Internal Medicine

== ENCOUNTER 2022-01-09 18:26 | Inpatient (IN) ==
[2022-01-09 19:32] LABS: Red Cell Distribution Width 14.6 % (11.5-14.5)
[2022-01-09 19:34] LABS: Hematocrit 30.4 % (35.3-44.9); Hemoglobin 9.3 g/dL (11.5-15.4); Immature Granulocytes % 0.7 % (0-4); Immature Platelets 3.8 % (1.1-6.1); Lymphocytes # 0.4 K/mcL (0.6-4.6); Lymphocytes % 5.2 %; Mean Corpuscular HGB Conc 30.6 g/dL (31.6-35.5); Mean Corpuscular Hemoglobin 28.9 pg (28.0-33.3); Mean Corpuscular Volume 94.4 fL (83.0-100.0); Mean Platelet Volume 10.3 fL (9.4-12.4); Monocytes # 0.4 K/mcL (0.0-1.3); Monocytes % 5.8 %; Red Blood Count 3.22 M/mcL (3.82-4.97); Segmented Neutrophils % 88.3 %; White Blood Count 7.3 K/mcL (4.3-11.1)
[2022-01-09 19:38] LABS: Neutrophils # 6.5 K/mcL (1.6-8.9)
[2022-01-09 19:40] LABS: Platelet Count 102 K/mcL (140-400)
[2022-01-09 19:47] LABS: BUN/Creatinine Ratio 13 (6-26); Blood Urea Nitrogen 35 mg/dL (8-23); Calcium 8.8 mg/dL (8.6-10.3); Carbon Dioxide 29 mEq/L (23-29); Chloride 105 mEq/L (98-107); Glucose 124 mg/dL (70-105); Osmolality,Calculated 299 (280-300); Potassium 3.6 mEq/L (3.5-5.1); Sodium 140 mEq/L (136-145); eGFR For African Americans 21 (> 60); eGFR For Non-African Americans 18 (> 60)
[2022-01-09 19:48] LABS: Troponin I < 0.03 ng/mL (< 0.04)
[2022-01-09] MEDS ORDERED: Ipratropium/Albuterol Neb 3 ML IH ONE ×2 (22:29→23:44)
[2022-01-09 22:57] LABS: Alanine Aminotransferase 16 Units/L (7-52); Albumin 2.9 g/dL (3.5-5.7); Albumin/Globulin Ratio 1.2 (1.1-2.2); Alkaline Phosphatase 77 Units/L (34-104); Aspartate Amino Transferase 37 Units/L (13-39); Bilirubin,Direct 0.3 mg/dL (0.0-0.2); Bilirubin,Indirect 0.6 mg/dL (0.0-1.0); Bilirubin,Total 0.9 mg/dL (0.3-1.0); Globulin 2.5 g/dL (2.4-3.5); Total Protein 5.4 g/dL (6.4-8.9)
[2022-01-09 23:06] LABS: INR 1.6; Prothrombin Time 17.4 Seconds (9.4-12.1)
[2022-01-09] MEDS ORDERED: methylPREDNISolone 125 MG/2 ML VIAL IVP ONE (23:44)
[2022-01-10] MEDS ORDERED: Furosemide 40 MG/4 ML VIAL IVP ONE (00:26)
[2022-01-10] MEDS ORDERED: Melatonin 3 MG TABLET PO PRN (02:03)
[2022-01-10] MEDS ORDERED: Naloxone 0.4 MG/ML INJ IVP PRN (02:03)
[2022-01-10] MEDS ORDERED: Ondansetron ODT 4 MG TAB.RAPDIS SL PRN (02:03)
[2022-01-10] MEDS ORDERED: Nicotine 7 MG PATCH.TD24 TD PRN (03:33)
[2022-01-10 03:55] LABS: Hematocrit 29.5 % (35.3-44.9)
[2022-01-10 03:57] LABS: Hemoglobin 8.9 g/dL (11.5-15.4); Immature Platelets 3.8 % (1.1-6.1); Mean Corpuscular HGB Conc 30.2 g/dL (31.6-35.5); Mean Corpuscular Hemoglobin 28.3 pg (28.0-33.3); Mean Corpuscular Volume 93.9 fL (83.0-100.0); Mean Platelet Volume 10.6 fL (9.4-12.4); Red Blood Count 3.14 M/mcL (3.82-4.97); Red Cell Distribution Width 14.6 % (11.5-14.5); White Blood Count 5.3 K/mcL (4.3-11.1)
[2022-01-10 04:09] LABS: Calcium 8.7 mg/dL (8.6-10.3); Potassium 3.6 mEq/L (3.5-5.1)
[2022-01-10 04:13] LABS: Magnesium 2.2 mg/dL (1.6-2.6); Phosphorous 3.3 mg/dL (2.7-4.5)
[2022-01-10] MEDS: Ipratropium/Albuterol Neb 3 ML IH SCH ×6 (04:27→23:20)
[2022-01-10 04:59] LABS: Prolactin 15.15 ng/mL (3.80-23.20)
[2022-01-10] MEDS ORDERED: Perflutren Lipid Microsphere 1.3 ML in 0.9 % Sodium Chloride 8.7 ML IVP PRN (05:04)
[2022-01-10 06:53] LABS: % Iron Saturation 6 % (15-50); Iron 20 mcg/dL (50-170); Transferrin 243 mg/dL (203-362)
[2022-01-10 07:08] LABS: Folate 3.8 ng/mL (3.0-16.0)
[2022-01-10] MEDS: Budesonide/Formoterol 160/4.5 1 PUFF INH IH SCH ×2 (07:36→19:59)
[2022-01-10] MEDS: Azithromycin 250 MG TABLET PO SCH (08:11)
[2022-01-10] MEDS: Furosemide 20 MG/2 ML VIAL IVP SCH ×2 (08:11→20:52)
[2022-01-10] MEDS: Nicotine 7 MG PATCH.TD24 TD PRN (08:12)
[2022-01-10] MEDS ORDERED: predniSONE 10 MG TABLET PO SCH (09:00)
[2022-01-10] MEDS ORDERED: predniSONE 20 MG TABLET PO ONE (10:16)
[2022-01-10] MEDS: carvediloL 6.25 MG TABLET PO SCH ×2 (10:54→16:45)
[2022-01-10] MEDS: Apixaban 5 MG TABLET PO SCH ×2 (10:54→20:52)
[2022-01-10 16:59] LABS: Hemoglobin 8.3 g/dL (11.5-15.4)
[2022-01-10] MEDS: Mirtazapine 15 MG TABLET PO SCH (20:52)
[2022-01-10] MEDS ORDERED: Budesonide/Formoterol 160/4.5 1 PUFF INH IH SCH (22:00)
[2022-01-11 03:29] LABS: Hematocrit 25.8 % (35.3-44.9); Immature Granulocytes % 0.6 % (0-4); Immature Platelets 4.6 % (1.1-6.1); Lymphocytes # 0.4 K/mcL (0.6-4.6); Lymphocytes % 8.1 %; Mean Corpuscular Hemoglobin 29.4 pg (28.0-33.3); Mean Corpuscular Volume 94.9 fL (83.0-100.0); Monocytes # 0.3 K/mcL (0.0-1.3); Monocytes % 7.2 %; Red Blood Count 2.72 M/mcL (3.82-4.97); Red Cell Distribution Width 14.8 % (11.5-14.5); Segmented Neutrophils % 84.1 %; White Blood Count 4.7 K/mcL (4.3-11.1)
[2022-01-11 03:40] LABS: Platelet Count 89 K/mcL (140-400)
[2022-01-11 03:46] LABS: Albumin 2.4 g/dL (3.5-5.7); Albumin/Globulin Ratio 1.2 (1.1-2.2); Bilirubin,Total 0.5 mg/dL (0.3-1.0); Calcium 8.6 mg/dL (8.6-10.3); Potassium 3.5 mEq/L (3.5-5.1); Total Protein 4.4 g/dL (6.4-8.9)
[2022-01-11] MEDS: Ipratropium/Albuterol Neb 3 ML IH SCH ×6 (03:50→23:11)
[2022-01-11] MEDS: Budesonide/Formoterol 160/4.5 1 PUFF INH IH SCH ×2 (07:35→20:24)
[2022-01-11] MEDS ORDERED: Iron Sucrose Complex 400 MG in 0.9 % Sodium Chloride 250 ML IVPB ONE (08:02)
[2022-01-11] MEDS: carvediloL 6.25 MG TABLET PO SCH ×2 (09:01→16:27)
[2022-01-11] MEDS: Azithromycin 250 MG TABLET PO SCH (09:02)
[2022-01-11] MEDS: Apixaban 5 MG TABLET PO SCH ×2 (09:02→20:33)
[2022-01-11] MEDS: predniSONE 10 MG TABLET PO SCH (09:03)
[2022-01-11 15:15] LABS: Bacteria,Urine Moderate per hpf (None-Few); Bilirubin,Urine Negative (Negative); Blood,Urine Large (Negative); Clarity,Urine Turbid (Clear); Color,Urine Light-Orange (Yellow); Glucose,Urine (UA) Normal (Normal); Hyaline Casts,Urine Many per lpf (None Seen); Ketones,Urine Negative (Negative); Leukocyte Esterase,Urine Moderate (Negative); Mucus,Urine Few per lpf (None-Few); Nitrite,Urine Negative (Negative); PH,Urine 5.5 pH Units (5.0-8.0); Protein,Urine 30 mg/dL (Neg-Trace); Renal Epithelial Cells,Urine Few per hpf (None-Few); Specific Gravity,Urine 1.018 (1.010-1.025); Squamous Epithelial Cell,Urine Few per hpf (None-Few); Transitional Epi Cells,Urine Few per hpf (None-Few); Urobilinogen,Urine Normal (Normal)
[2022-01-11 15:19] LABS: Sodium, Urine 14.6 mEq/L
[2022-01-11] MEDS: Pantoprazole 40 MG VIAL IVP SCH (17:26)
[2022-01-11] MEDS: Albumin 25% 25gram/100mL 25 GM/100 ML IV.SOLN IVPB SCH ×2 (17:27→23:34)
[2022-01-11] MEDS: Mirtazapine 15 MG TABLET PO SCH (20:33)
[2022-01-12 03:31] LABS: Hemoglobin 7.4 g/dL (11.5-15.4); Monocytes % 10.1 %; Red Cell Distribution Width 14.6 % (11.5-14.5)
[2022-01-12 03:33] LABS: Hematocrit 24.9 % (35.3-44.9); Immature Platelets 3.8 % (1.1-6.1); Lymphocytes # 0.3 K/mcL (0.6-4.6); Lymphocytes % 6.2 %; Mean Corpuscular HGB Conc 29.7 g/dL (31.6-35.5); Mean Corpuscular Hemoglobin 28.5 pg (28.0-33.3); Mean Corpuscular Volume 95.8 fL (83.0-100.0); Mean Platelet Volume 10.9 fL (9.4-12.4); Monocytes # 0.5 K/mcL (0.0-1.3); Neutrophils # 4.3 K/mcL (1.6-8.9); Segmented Neutrophils % 82.7 %; White Blood Count 5.2 K/mcL (4.3-11.1)
[2022-01-12 03:34] LABS: Platelet Count 91 K/mcL (140-400)
[2022-01-12 03:45] LABS: Albumin 3.2 g/dL (3.5-5.7); Albumin/Globulin Ratio 1.7 (1.1-2.2); Bilirubin,Total 0.5 mg/dL (0.3-1.0); Globulin 1.9 g/dL (2.4-3.5); Potassium 3.4 mEq/L (3.5-5.1); Total Protein 5.1 g/dL (6.4-8.9)
[2022-01-12] MEDS: Ipratropium/Albuterol Neb 3 ML IH SCH ×6 (04:04→23:49)
[2022-01-12] MEDS: Pantoprazole 40 MG VIAL IVP SCH ×2 (05:18→17:17)
[2022-01-12] MEDS: Budesonide/Formoterol 160/4.5 1 PUFF INH IH SCH ×2 (07:28→19:58)
[2022-01-12] MEDS: Azithromycin 250 MG TABLET PO SCH (08:18)
[2022-01-12] MEDS: Albumin 25% 25gram/100mL 25 GM/100 ML IV.SOLN IVPB SCH ×3 (08:18→23:21)
[2022-01-12] MEDS: carvediloL 6.25 MG TABLET PO SCH ×2 (08:19→17:18)
[2022-01-12] MEDS: predniSONE 10 MG TABLET PO SCH (08:19)
[2022-01-12] MEDS: Apixaban 5 MG TABLET PO SCH (08:19)
[2022-01-12] MEDS: Acetaminophen 325 MG TABLET PO PRN (09:07)
[2022-01-12] MEDS: Nicotine 7 MG PATCH.TD24 TD PRN (11:37)
[2022-01-12] MEDS: Lactulose Oral Soln 20 GM/30 ML UDC PO SCH ×2 (14:10→20:21)
[2022-01-12 14:42] LABS: Appearance of Peritoneal Fl CLEAR (Clear)
[2022-01-12 14:49] LABS: RBC,Peritoneal Fluid < 2000 RBC/mcL
[2022-01-12 15:07] LABS: Glucose,Peritoneal Fluid 104 mg/dL (No Ref Range); LDH,Peritoneal Fluid 33 Units/L (No Ref Range); Total Protein,Peritoneal Fluid < 2.0 g/dL
[2022-01-12 15:58] LABS: Basophils,Peritoneal Fluid 0 %; Eosinophils,Peritoneal Fluid 0 %
[2022-01-12] MEDS: Mirtazapine 15 MG TABLET PO SCH (20:21)
[2022-01-13 01:36] LABS: Mean Platelet Volume 10.5 fL (9.4-12.4); Red Blood Count 2.29 M/mcL (3.82-4.97)
[2022-01-13 01:38] LABS: Hematocrit 21.6 % (35.3-44.9); Hemoglobin 6.4 g/dL (11.5-15.4); Immature Granulocytes % 1.5 % (0-4); Immature Platelets 5.3 % (1.1-6.1); Lymphocytes # 0.3 K/mcL (0.6-4.6); Mean Corpuscular HGB Conc 29.6 g/dL (31.6-35.5); Mean Corpuscular Hemoglobin 27.9 pg (28.0-33.3); Mean Corpuscular Volume 94.3 fL (83.0-100.0); Monocytes # 0.5 K/mcL (0.0-1.3); Monocytes % 14.1 %; Neutrophils # 2.5 K/mcL (1.6-8.9); Red Cell Distribution Width 14.5 % (11.5-14.5); Segmented Neutrophils % 76.4 %; White Blood Count 3.3 K/mcL (4.3-11.1)
[2022-01-13 01:50] LABS: Platelet Count 88 K/mcL (140-400)
[2022-01-13 01:51] LABS: Calcium 9.2 mg/dL (8.6-10.3); Potassium 3.2 mEq/L (3.5-5.1)
[2022-01-13 01:52] LABS: INR 2.4; Prothrombin Time 26.4 Seconds (9.4-12.1)
[2022-01-13] MEDS: Ipratropium/Albuterol Neb 3 ML IH SCH ×6 (03:50→23:30)
[2022-01-13] MEDS: Pantoprazole 40 MG VIAL IVP SCH ×2 (05:17→17:11)
[2022-01-13] MEDS: Budesonide/Formoterol 160/4.5 1 PUFF INH IH SCH ×2 (07:24→20:42)
[2022-01-13] MEDS: carvediloL 6.25 MG TABLET PO SCH ×2 (07:25→17:11)
[2022-01-13] MEDS: Azithromycin 250 MG TABLET PO SCH (07:25)
[2022-01-13] MEDS: predniSONE 10 MG TABLET PO SCH (07:25)
[2022-01-13] MEDS: Lactulose Oral Soln 20 GM/30 ML UDC PO SCH ×2 (07:25→19:49)
[2022-01-13] MEDS: Apixaban 5 MG TABLET PO SCH ×2 (07:26→19:49)
[2022-01-13] MEDS ORDERED: Lidocaine -MPF 2% 5 ML VIAL ONE (09:02)
[2022-01-13] MEDS ORDERED: *HR* Propofol 200 MG/20 ML VIAL IVP ONE (09:02)
[2022-01-13] MEDS: Albumin 25% 25gram/100mL 25 GM/100 ML IV.SOLN IVPB SCH ×2 (11:14→17:11)
[2022-01-13] MEDS ORDERED: 0.9 % Sodium Chloride 250 ML ONE (11:25)
[2022-01-13 12:23] LABS: INR 1.6; Prothrombin Time 17.8 Seconds (9.4-12.1)
[2022-01-13] MEDS: Acetaminophen 325 MG TABLET PO PRN (19:46)
[2022-01-13] MEDS: Mirtazapine 15 MG TABLET PO SCH (19:49)
[2022-01-14] MEDS: Albumin 25% 25gram/100mL 25 GM/100 ML IV.SOLN IVPB SCH ×3 (00:15→17:18)
[2022-01-14 02:37] LABS: Red Cell Distribution Width 17.2 % (11.5-14.5)
[2022-01-14 02:39] LABS: Hematocrit 27.2 % (35.3-44.9); Hemoglobin 8.4 g/dL (11.5-15.4); Immature Platelets 4.9 % (1.1-6.1); Mean Corpuscular HGB Conc 30.9 g/dL (31.6-35.5); Mean Corpuscular Hemoglobin 27.7 pg (28.0-33.3); Mean Corpuscular Volume 89.8 fL (83.0-100.0); Mean Platelet Volume 10.4 fL (9.4-12.4); Nucleated Red Blood Cells 0.6 /100 WBC (0); Red Blood Count 3.03 M/mcL (3.82-4.97); White Blood Count 4.6 K/mcL (4.3-11.1)
[2022-01-14 02:57] LABS: Calcium 9.5 mg/dL (8.6-10.3); Potassium 3.3 mEq/L (3.5-5.1)
[2022-01-14 03:01] LABS: INR 1.8; Prothrombin Time 20.1 Seconds (9.4-12.1)
[2022-01-14 03:15] LABS: Platelet Count 80 K/mcL (140-400)
[2022-01-14] MEDS: Ipratropium/Albuterol Neb 3 ML IH SCH ×5 (04:01→20:48)
[2022-01-14 04:37] LABS: Eosinophils # 0.1 K/mcL (0.0-0.6); Lymphocytes # 0.4 K/mcL (0.6-4.6); Monocytes # 0.2 K/mcL (0.0-1.3); Platelet Estimate Decreased (Normal)
[2022-01-14] MEDS: Budesonide/Formoterol 160/4.5 1 PUFF INH IH SCH ×2 (07:27→20:48)
[2022-01-14] MEDS: predniSONE 10 MG TABLET PO SCH (08:14)
[2022-01-14] MEDS: Apixaban 5 MG TABLET PO SCH ×2 (08:14→19:29)
[2022-01-14] MEDS: carvediloL 6.25 MG TABLET PO SCH ×2 (08:14→17:18)
[2022-01-14] MEDS: Lactulose Oral Soln 20 GM/30 ML UDC PO SCH ×3 (08:14→19:29)
[2022-01-14] MEDS: Potassium Chloride Elixir 20 MEQ/15 ML UDC PO SCH ×2 (09:30→13:38)
[2022-01-14] MEDS ORDERED: levoFLOXacin 750 MG TABLET PO SCH (13:00)
[2022-01-14 15:14] LABS: Fluid Source for Albumin PERITONEAL
[2022-01-14] MEDS ORDERED: Furosemide 40 MG/4 ML VIAL IVP ONE (15:56)
[2022-01-14] MEDS: Mirtazapine 15 MG TABLET PO SCH (19:29)
[2022-01-14] MEDS ORDERED: *HR* Labetalol 20 MG/4 ML SYRINGE IVP ONE (23:49)
[2022-01-15] MEDS: Albumin 25% 25gram/100mL 25 GM/100 ML IV.SOLN IVPB SCH ×4 (00:13→23:53)
[2022-01-15] MEDS: Ipratropium/Albuterol Neb 3 ML IH SCH ×7 (01:14→23:23)
[2022-01-15 01:59] LABS: Hemoglobin 8.7 g/dL (11.5-15.4)
[2022-01-15 02:01] LABS: Hematocrit 28.2 % (35.3-44.9); Immature Platelets 6.4 % (1.1-6.1); Mean Corpuscular HGB Conc 30.9 g/dL (31.6-35.5); Mean Corpuscular Hemoglobin 28.1 pg (28.0-33.3); Mean Platelet Volume 11.1 fL (9.4-12.4); Red Cell Distribution Width 16.9 % (11.5-14.5); White Blood Count 4.2 K/mcL (4.3-11.1)
[2022-01-15 02:04] LABS: Platelet Count 56 K/mcL (140-400)
[2022-01-15 02:48] LABS: Lymphocytes # 0.3 K/mcL (0.6-4.6); Monocytes # 0.2 K/mcL (0.0-1.3); Neutrophils # 3.8 K/mcL (1.6-8.9); Platelet Estimate Decreased (Normal)
[2022-01-15 03:19] LABS: Potassium 4.3 mEq/L (3.5-5.1)
[2022-01-15] MEDS ORDERED: *HR* Labetalol 20 MG/4 ML SYRINGE IVP ONE (03:55)
[2022-01-15] MEDS: Budesonide/Formoterol 160/4.5 1 PUFF INH IH SCH ×2 (07:27→19:55)
[2022-01-15] MEDS: Apixaban 5 MG TABLET PO SCH ×2 (10:20→20:28)
[2022-01-15] MEDS: predniSONE 10 MG TABLET PO SCH (10:20)
[2022-01-15] MEDS: carvediloL 6.25 MG TABLET PO SCH ×2 (10:20→17:20)
[2022-01-15] MEDS: Lactulose Oral Soln 20 GM/30 ML UDC PO SCH ×3 (10:20→20:28)
[2022-01-15] MEDS: Nicotine 7 MG PATCH.TD24 TD PRN (10:32)
[2022-01-15] MEDS ORDERED: Saliva Stimulant 44.3ml BOTTLE PO PRN (10:59)
[2022-01-15] MEDS ORDERED: GuaiFENesin Liq 200 MG/10 ML UDC PO PRN (13:34)
[2022-01-15] MEDS: Mirtazapine 15 MG TABLET PO SCH (20:28)
[2022-01-16] MEDS: Ipratropium/Albuterol Neb 3 ML IH SCH ×3 (03:25→11:02)
[2022-01-16 06:57] VITALS: PULSE 69
[2022-01-16] MEDS: Budesonide/Formoterol 160/4.5 1 PUFF INH IH SCH (07:32)
[2022-01-16 08:20] LABS: Immunoglobulin A 296 mg/dL (68-408); Immunoglobulin G 734 mg/dL (768-1632); Immunoglobulin M 42 mg/dL (35-263)
[2022-01-16] MEDS ORDERED: levoFLOXacin 500 MG TABLET PO SCH (09:00)
[2022-01-16] MEDS ORDERED: Nicotine 7 MG PATCH.TD24 TD SCH (09:00)
[2022-01-16 09:21] LABS: Alpha 2 Globulin (PEP) 0.66 g/dL (0.48-1.05); Beta Globulin (PEP) 0.55 g/dL (0.48-1.10)
[2022-01-16] MEDS: carvediloL 6.25 MG TABLET PO SCH (10:17)
[2022-01-16] MEDS: Apixaban 5 MG TABLET PO SCH (10:18)
[2022-01-16] MEDS: Lactulose Oral Soln 20 GM/30 ML UDC PO SCH (10:22)
[2022-01-16] MEDS: Albumin 25% 25gram/100mL 25 GM/100 ML IV.SOLN IVPB SCH (10:26)
[2022-01-16 10:32] VITALS: BP 164/82; TEMP 97.8
[2022-01-16 11:36] VITALS: O2SAT 95
[2022-01-16 13:11] LABS: IFE Reflexed IFE Done
== END 2022-01-16 15:01 | disposition hospice, home (50) | DRG 432 ==
LOC: EMEROOARM 18:26 → 3BNU 18:26 → SUATTDRO 01-10 00:57 → 3BNU 01-10 01:40
PROVIDERS: ADMIT Internal Medicine; ATTEND Registered Nurse